=== PATIENT | male | born 1965 | race Caucasian/White ===

== ENCOUNTER 2020-01-02 03:09 | Emergency (ER) | payer OTHER, SELFPAY ==
[2019-10-24 08:22] VITALS: BMI 32.0
[2020-01-02 03:10] VITALS: BP 160/88; PULSE 64; RESP 16; TEMP 36.2; O2SAT 100; BMI 31.8
--- NOTE | 2020-01-02 03:52 | CT_ITS ---
STUDY: CT ABDOMEN AND PELVIS WITHOUT CONTRAST REASON FOR EXAM: Male, 54 years old. Right flank and back pain. Nausea. RADIATION DOSAGE (If Supplied By Facility): CTDIvol = ( 19.21 ) mGy, DLP = ( 1099.08 ) mGycm TECHNIQUE: Transaxial images were obtained from the dome of the diaphragm to the symphysis pubis without oral contrast, and without intravenous contrast. Sagittal and coronal images were reconstructed. Individualized dose optimization techniques were used for this CT. COMPARISON: None. FINDINGS: The visualized lung bases are unremarkable. The visualized portions of the heart are within normal limits. Normal liver. Normal gallbladder and extrahepatic biliary system. Normal spleen. Normal pancreas. Normal bilateral adrenal glands. Mild right hydronephrosis secondary to a 3 mm x 2 mm calcification within the floor of the bladder on the right. Either this calcification represents a ureterovesicular stone or a stone which has recently passed into bladder. Normal left kidney. Normal visualized stomach. Normal small intestine. Normal colon. The appendix is visualized and appears normal. Normal abdominal aorta. Normal inferior vena cava. Normal retroperitoneum. 3 mm x 2 mm stone within the floor of the bladder on the right. Normal visualized prostate gland. Normal abdominal wall. Mild degenerative changes of the lower thoracic spine. CT/Abdomen/Pelvis without Cont IMPRESSION: Mild right hydronephrosis secondary to a 3 mm x 2 mm calcification, representing either a right ureterovesicular junction stone or a stone which has recently passed into the bladder. Electronically Signed: Neymar Weller MD at 4:37 EDT , Service support ,
[2020-01-02 03:59] LABS: Bacteria 0 SEEN /hpf (None Seen); Mucous, Urine 0 SEEN /hpf (<or=2+); Squamous Epithelial Cells - UA 0 SEEN /hpf (0-5)
[2020-01-02 04:01] LABS: Absolute Lymphocyte Count 1.98 X10^3/uL (0.83-4.51); Absolute Neutrophil Count 8.4 X10^3/uL (2.0-7.7); Basophil# 0.05 X10^3/uL; Basophil% 0.4 % (0-1); Eosinophil# 0.05 X10^3/uL; Eosinophils% 0.4 % (0-5); Hematocrit 45.4 % (40-54); Hemoglobin 15.2 g/dL (13.0-16.5); Lymphocyte # 1.98 X10^3/ul (4.0); Lymphocyte % 17.4 % (19-41); Mean Corp Hgb Conc 33.5 g/dL (32-36); Mean Corpuscular Hgb 29.3 pg (27.0-32.0); Mean Corpuscular Volume 87.6 fL (80-94); Mean Platelet Vol. 9.4 fl (6.2-12.0); Monocyte# 0.85 X10^3/uL; Monocyte% 7.5 % (0-10); NRBC Flagged by Analyzer 0 % (0-5); Neutrophil % 73.8 % (47-70); Platelet Count 239 K/mm3 (150-450); Red Blood Count 5.18 M/mm3 (4.6-6.2); White Blood Count 11.4 K/mm3 (4.4-11.0)
--- NOTE | 2020-01-02 04:02 | ED.DCSUM_ITS ---
History of Present Illness Chief Complaint: Abd Pain Informant: Patient - Abdominal Pain/Flank Pain Onset: Hours - 3 Context: Sudden Onset Quality: Dull Location: Right Flank Current Severity: Moderate Maximum Severity: Moderate Worsened by: Nothing Relieved by: Nothing - Nausea/Vomiting/Emesis GI Symptom: Nausea, Vomiting Quality: Nonbilious. Negative for: Blood streaks, Coffee ground, Hematemesis - Diarrhea/Melena/Hematochezia GI Symptom: - - Isabel like I needed to have a bowel movement, so I tried but could not.. Negative for: Diarrhea, Melena, Hematochezia Associated Symptoms: Negative for: Dysuria, Frequency, Hematuria, Urgency Narrative: No recent injury. This pain woke him up from sleep. Never had this before. No history of kidney stones. No history of abdominal surgeries. Prior similar symptoms: No Recent Illness/Hospitalization: No Past Medical History - Allergies and Home Meds Allergies/Adverse Reactions: Allergies No Known Allergies Allergy (Verified 01/02/20 03:09) Primary Care Physician: Sommer Hicks MD [Primary Care Provider] - Past Medical History: None Surgical History: no surgical history Lives: With Family, - - Local [employer] Smoking Status: Never smoker Review of Systems General: Denies: Chills, Fever, Sweats Eyes: Denies: Visual changes - bilaterally, Diplopia ENT: Denies: Rhinorrhea, Sore throat Cardiovascular: Denies: Chest pain, Palpitations Respiratory: Denies: Dyspnea, Cough, Dyspnea on exertion Gastrointestinal: Reports: Abdominal pain - Right low, Nausea, Vomiting. Denies: Diarrhea, Melena, Hematochezia Genitourinary: Denies: Dysuria, Hematuria, Frequency Musculoskeletal: Reports: Back pain - Right low. Denies: Extremity Pain Skin: Denies: Rash, Wounds Neurological: Denies: Headache, Weakness, Numbness Physical Exam Vital Signs/Narrative: Vital Signs Temp Pulse Resp BP Pulse Ox 01/02/20 03:10 97.2 F L 64 16 160/88 H 100 Inital Vital Signs reviewed: Yes General: Well nourished, Well developed, No Acute Distress Head: Normocephalic, Atraumatic Eyes: Perrl, EOMI ENT: Moist mucous membranes, No rhinorrhea Neck: Supple, Nontender Cardiovascular: Regular rate, Regular rhythm, No murmurs Respiratory: No distress, CTA bilaterally, Chest nontender Abdomen: Soft, Nontender, Nondistended, Normal bowel sounds Back: Nontender, Normal Inspection. Negative for: CVA tenderness Extremities: Nontender, No edema. Negative for: Calf Tenderness Skin: Normal color, No rash, No Trauma Neurological: Alert, Oriented x3, Cranial nerves II-XII grossly intact, Normal Strength, Normal Sensation, Normal Gait Psychological: Normal affect, Normal Mood Diagnostic/Tx/Re-eval Impressions Abdomen/Pelvis CT 01/02/20 03:52 IMPRESSION: Mild right hydronephrosis secondary to a 3 mm x 2 mm calcification, representing either a right ureterovesicular junction stone or a stone which has recently passed into the bladder. Electronically Signed: Neymar Weller MD at 4:37 EDT , Service support , 01/02/20 03:52 Abdomen/Pelvis without Cont [CT] Stat Laboratory Results 01/02/20 01/02/20 01/02/20 03:10 03:25 03:25 WBC 11.4 H RBC 5.18 Hgb 15.2 Hct 45.4 MCV 87.6 MCH 29.3 MCHC 33.5 RDW Std Deviation 39.0 RDW Coeff of Jocy 12.0 Plt Count 239 MPV 9.4 Immature Gran % (Auto) 0.500 Neut % (Auto) 73.8 H Lymph % (Auto) 17.4 L Darke % (Auto) 7.5 Eos % (Auto) 0.4 Baso % (Auto) 0.4 Absolute Neuts (auto) 8.4 H Absolute Lymphs (auto) 1.98 Nucleated RBC % 0 Sodium 137 Potassium 3.6 Chloride 100 Carbon Dioxide 29.0 Anion Gap 8 BUN 20 H Creatinine 1.39 H Estim Creat Clear Calc 67.46 Est GFR (MDRD) Af Amer 69 Est GFR (MDRD) Non-Af 57 L BUN/Creatinine Ratio 14.4 Glucose 193 H Calcium 8.8 Urine Color Yellow Urine Clarity Sl Cldy Urine pH 6.0 Ur Specific [place] 1.025 Urine Protein 30 H Urine Glucose (UA) 250 H Urine Ketones Negative Urine Occult Blood 150 H Urine Nitrite Negative Urine Bilirubin Negative Urine Urobilinogen 1 H Ur Leukocyte Esterase Negative Urine RBC 5-10 SEEN Urine WBC 0-5 SEEN Ur Squamous Epith Cells 0 SEEN Urine Bacteria 0 SEEN Urine Mucus 0 SEEN - Medical Decision Making As above, CT confirms suspicion of urolithiasis. There is a 3 mm x 2 mm stone at the right UVJ. Patient was treated with Zofran and Toradol, he is feeling mu ch better. Expectant management is indicated along with symptom control. He was prescribed [place] and Zofran and given urology referral if he should needed, I doubt he will for this, we discussed reasons to return, fevers, hematuria, symptoms [id number]. He is comfortable with that plan. ED Disposition - Plan for ED Patient: Disposition: Home or Assisted Living Diagnosis: Urolithiasis, Ureteral colic Instructions: ED Renal Stone w Colic Prescriptions: Hydrocodone Bitart/Apap 5-325 [[place] 5MG-325MG] 1 tablet PO Q4H PRN PRN 2 Days #10 tablet PRN Reason: Pain Ondansetron [Zofran Odt] 8 mg PO Q8H PRN PRN #15 tablet PRN Reason: Nausea Referrals: Sommer Hicks MD [Primary Care Provider] - Jeff Castillo MD [STAFF PHYSICIAN] - 1 Week if not improving
[2020-01-02 04:08] LABS: Color, Urine Yellow (Yellow); Glucose, Dipstick 250 mg/dl (Normal); Ketone-Dipstick Negative (Negative); Leukocyte Esterase-Dipstick Negative /ul (Negative); Nitrite-Dipstick Negative (Negative); Occult Blood-Urine 150 /ul (Negative); Protein-Dipstick 30 mg/dl (Negative); Specific Gravity, Urine 1.025 (1.002-1.030); Urine Bilirubin Dipstick Negative (Negative); Urine Clarity Sl Cldy (Clear); Urine Urobilinogen 1 mg/dl (Normal)
[2020-01-02 04:09] LABS: Red Blood Cells-Urine 5-10 SEEN /hpf (0-5); White Blood Cells 0-5 SEEN /hpf (0-5)
[2020-01-02 04:13] LABS: Anion Gap 8 (5-15); BUN 20 mg/dL (7-18); BUN/Creat Ratio 14.4 RATIO (10-20); Calcium,Total 8.8 mg/dL (8.5-10.1); Chloride 100 mmol/L (98-107); Creatinine, Serum 1.39 mg/dL (0.70-1.30); EST Glomerular Filtration Rate 57 mL/min (>60); Est Glom Filt Rate - Afr Amer 69 mL/min (>60); Estimated Creatinine Clearance 67.46 ml/min; Glucose 193 mg/dL (74-106); Potassium 3.6 mmol/L (3.5-5.1); Sodium Level 137 mmol/L (136-145)
[2020-01-02] MEDS: Ketorolac 30 MG/ML Syringe 15 MG IV (04:14)
[2020-01-02] MEDS: Ondansetron 4 MG/2 ML Vial IV (04:19)
[2020-01-02] MEDS: Ondansetron ODT 4 MG Tablet PO (05:30)
[2020-01-02 05:35] VITALS: BP 148/74; PULSE 64; RESP 16; O2SAT 98
== END 2020-01-02 05:36 | disposition home or self-care (01) ==
PROVIDERS: Emergency Provider Emergency Medicine; PCP Internal Medicine
DX: N20.1 Calculus of ureter (principal); N23 Unspecified renal colic
CPT/HCPCS: 74176; 80048; 81001; 85025; 96374; 96375; 99284; A4216; J2405

== ENCOUNTER → 2020-03-13 06:28 | Outpatient (CLI) | payer OTHER, SELFPAY ==
--- NOTE | 2020-03-13 06:39 | MRI_ITS ---
STUDY: MRI LEFT SHOULDER REASON FOR EXAM: Left shoulder aching, injury 03/07/2020, prior tear with surgery approximately 15 years ago. TECHNIQUE: Standardized fat and water weighted pulse sequences were obtained in all 3 orthogonal planes. COMPARISON: MRI report 07/02/2006. FINDINGS: There is mild supraspinatus tendinosis and a small intermediate grade partial-thickness tear of the articular surface of the distal anterior supraspinatus tendon (T2 coronal image 6) measuring 0.6 cm in length with mild delamination. Normal infraspinatus tendon. There is an undersurface partial-thickness tear of the distal superior fibers of the subscapularis tendon with medial subluxation of the proximal extracapsular long biceps tendon (proton density axial images 12, 13). Normal teres minor tendon. Normal supraspinatus muscle. Normal infraspinatus muscle. Normal subscapularis muscle. Normal teres minor muscle. Normal glenohumeral articulation. There is a very small cyst and slight bone edema in the greater tuberosity. Normal biceps labral complex. There is a suspected tear of the posterior inferior labrum (proton density axial image 15). Normal capsulo- ligamentous complex. Status post subacromial decompression/excision of the distal clavicle. There is a small volume of subacromial-subdeltoid bursal fluid (T2 coronal images 4-8). Normal deltoid muscle. Normal trapezius muscle. MRI/Upper Ext Joint Only(Routine) IMPRESSION: Small partial-thickness tear and mild tendinosis of the supraspinatus tendon. Undersurface partial-thickness tear of the subscapularis tendon with medial subluxation of the proximal extracapsular long biceps tendon. Suspected tear of the posterior inferior labrum. Mild subacromial-subdeltoid bursitis. Electronically Signed: Pierre Avilez MD at 10:10 EDT Tel , Service support ,
== END ==
PROVIDERS: PCP Internal Medicine; Referring Provider Emergency Medicine; Visit Provider Emergency Medicine
DX: S43.402A Unspecified sprain of left shoulder joint, initial encounter (principal)
CPT/HCPCS: 73221

== ENCOUNTER → 2020-04-16 09:20 | Outpatient (CLI) | payer OTHER, SELFPAY | PROVIDERS: PCP Internal Medicine; Referring Provider Physician Assistant Surgical; Visit Provider Physician Assistant Surgical | DX: Z20.828 Contact with and (suspected) exposure to other viral communicable diseases (principal) | CPT/HCPCS: 87635; 94799; U0003 ==

== ENCOUNTER 2020-11-09 16:13 | Emergency (ER) | payer OTHER, SELFPAY ==
[2020-10-29 08:51] VITALS: BMI 32.9
[2020-11-09 16:17] VITALS: BP 159/75; PULSE 76; RESP 18; TEMP 36.2; O2SAT 97; BMI 32.5
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
[2020-11-09 19:52] LABS: HIV - WCH Non-Reactive (Nonreactive); Hepatitis B Surface Antibody Reactive; Hepatitis B Surface Antigen Non-Reactive (Nonreactive); Hepatitis C Antibody Non-Reactive (Nonreactive)
== END 2020-11-09 17:10 | disposition home or self-care (01) ==
LOC: ED 16:52
PROVIDERS: Emergency Provider Emergency Medicine; PCP Internal Medicine
DX: Z20.828 Contact with and (suspected) exposure to other viral communicable diseases (principal); S00.01XA Abrasion of scalp, initial encounter; Y04.0XXA Assault by unarmed brawl or fight, initial encounter; Y92.89 Other specified places as the place of occurrence of the external cause; Y99.0 Civilian activity done for income or pay
CPT/HCPCS: 36415; 86703; 86706; 86803; 87340; 99281; 99282